=== PATIENT | female | born 2000 | race Caucasian/White ===

== ENCOUNTER 2018-05-09 19:49 | Emergency (ER) | payer MEDICAID ==
--- NOTE | 2018-05-09 20:10 | Emergency Department Record ---
History of Present Illness - General Chief complaint: Abscess Stated complaint: RT ARM PIT ABCESS Time Seen by Provider: 05/09/18 19:50 Source: Patient Mode of Arrival: Ambulatory Limitations: No limitations - History of Present Illness Initial comments: 18 yo female presents to ED for evaluation of swelling and drainage from the right axillary region that began 5 days ago. Patient reports that she accidentally nicked the area with a finger nail while putting on deodorant when the lesion began draining. Patient reports pain and irritation from her bra on the right side. Patient denies fever, chills, or recent illness. MD complaint: Abscess/boil Onset/Timin -: Days(s) Hx Tetanus Toxoid Vaccination: Yes Patient Tetanus UTD (within 5 yrs): Yes Location: RUE Severity: Moderate Severity scale (1-10): 8 Quality: Dull Consistency: Constant Improves with: None Worsens with: None Context: None Associated symptoms: Denies other symptoms Treatments Prior to Arrival: Attempted to drain pus at home, Bandages - Related Data Home Medications Medication Instructions Recorded Confirmed Last Taken Levonorgestrel-Ethin Estradiol 1 tab PO ASDIR 05/09/18 05/09/18 Unknown [Levonor-Eth Estrad 0.15-0.03] Previous Rx's Medication Instructions Recorded Clindamycin HCl 300 mg PO QID #27 capsule 05/09/18 Allergies Allergy/AdvReac Type Severity Reaction Status Date / Time No Known Drug Allergies Allergy Verified 05/09/18 19:57 Travel Screening - Travel/Exposure Within Last 30 Days Have you traveled within the last 30 days?: No - Travel/Exposure Within Last Year Have you traveled outside the [place] in the last year?: No - Additonal Travel Details Have you been exposed to anyone with a communicable illness?: No - Travel Symptoms Symptom Screening: None Review of Systems Constitutional: Denies: Chills, Fever, Malaise, Night sweats Eyes: Denies: Eye discharge, Eye pain, Photophobia ENT: Denies: Congestion, Ear pain, Epistaxis Respiratory: Denies: Cough, Dyspnea Cardiovascular: Denies: Chest pain, Dyspnea on exertion Endocrine: Denies: Fatigue, Heat or cold intolerance Gastrointestinal: Denies: Abdominal pain, Nausea, Vomiting Genitourinary: Denies: Incontinence, Retention Musculoskeletal: Denies: Arthralgia, Back pain, Gout, Joint swelling Skin: Reports: Lesions, Other (Swelling/pain to the right axillary region). Denies: Bruising, Change in color Neurological: Denies: Abnormal gait, Confusion Psychiatric: Denies: Anxiety Hematological/Lymphatic: Denies: Anemia, Blood Clots Past Medical History - SOCIAL HISTORY Smoking Status: Never smoker Alcohol Use: None Drug Use: None - RESPIRATORY Hx Respiratory Disorders: Yes Hx Asthma: Yes - CARDIOVASCULAR Hx Cardio Disorders: No - NEURO Hx Neuro Disorders: No - GI Hx GI Disorders: No - Hx Genitourinary Disorders: No - ENDOCRINE Hx Endocrine Disorders: No - MUSCULOSKELETAL Hx Musculoskeletal Disorders: No - PSYCH Hx Psych Problems: No - HEMATOLOGY/ONCOLOGY Hx Hematology/Oncology Disorders: No Family Medical History Any Significant Family History?: No Physical Exam - General General Appearance: Alert, Oriented x3, Cooperative, Mild distress Limitations: No limitations - Head Head exam: Atraumatic, Normocephalic, Normal inspection Head exam detail: negative: Abrasion, Contusion, Cano's sign, General tenderness, Hematoma, Laceration - Eye Eye exam: Normal appearance. negative: Conjunctival injection, Periorbital swelling, Periorbital tenderness, Scleral icterus - ENT Ear exam: negative: Auricular hematoma, Auricular trauma Nasal Exam: negative: Active bleeding, Discharge, Dried blood, Foreign body Mouth exam: negative: Drooling, Laceration, Muffled voice, Tongue elevation - Neck Neck exam: Normal inspection. negative: Meningismus, Tenderness - Respiratory Respiratory exam: Normal lung sounds bilaterally. negative: Respiratory distress, Rhonchi, Stridor, Wheezes - Cardiovascular Cardiovascular Exam: Regular rate, Normal rhythm, Normal heart sounds - GI/Abdominal GI/Abdominal exam: Soft. negative: Rebound, Rigid, Tenderness - Rectal Rectal exam: Deferred - exam: Deferred - Extremities Extremities exam: Tenderness, Other (2.5 cm area of erythema, induration, and drainage present to the proximal right medial forearm c/w cutaneous abscess). negative: Pedal edema - Back Back exam: Denies: CVA tenderness (R), CVA tenderness (L) - Neurological Neurological exam: Alert, Normal gait, Oriented X3 - Psychiatric Psychiatric exam: Normal affect, Normal mood - Skin Skin exam: Erythema. negative: Abrasion Type of lesion: negative: abrasion Course Vital Signs 05/09/18 05/09/18 19:59 20:00 Temperature 98.5 F 98.5 F Pulse Rate [ 97 H Pulse Ox Probe] Respiratory 20 20 Rate Blood Pressure 149/98 [Left Arm] Pulse Ox 98 98 - Reevaluation(s) Reevaluation #1: 05/09/18 20:15 Procedure Note: Skin was cleaned and prepped in sterile fashion, abscess was anesthetized with 1% Lidocaine with epinephrine with good anesthesia. Abscess was then further opened using #11 blade, moderate amount of sero-sanguinous material was removed. Abscess was further probed to break up loculations. Patient tolerated the procedure well without complications, instructed to apply warm soaks BID. Will also initiate treatment with Clindamycin as directed. Procedures - Incision and Drainage Site: Right proximal upper extremity medially, 2.5 cm abscess Blade Size: 11 Disposition Disposition: Discharge Clinical Impression: Cutaneous abscess Qualifiers: Site of cutaneous abscess: extremity Site of cutaneous abscess of extremity: axilla Laterality: right Qualified Code(s): L02.411 - Cutaneous abscess of right axilla Disposition: Home, Self-Care Condition: (2) Stable Instructions: Abscess Incision and Drainage (ED) Additional Instructions: Return to ED if your symptoms worsen or if you have any concerns. Clindamycin as directed.' Warm soaks twice daily. Follow-up with your family doctor in 3-5 days as directed. Prescriptions: Clindamycin HCl 300 mg PO QID #27 capsule Forms: Patient Portal Access Time of Disposition: 20:10 Quality - Quality Measures Quality Measures: N/A - Blood Pressure Screening Does Patient Have Any of the Following: No Blood Pressure Classification: Pre-Hypertensive BP Reading Systolic Measurement: 130 Diastolic Measurement: 69 Screening for High Blood Pressure: < Pre-Hypertensive BP, F/U Documented > [ [id number]] Pre-Hypertensive Follow-up Interventions: Referral to alternative/primary care provider.
[2018-05-09] MEDS: CLINDAMYCIN 150 MG CAP PO ONE (20:22)
== END 2018-05-09 20:26 | disposition home or self-care (01) ==
LOC: ER 19:49
DX: L03.111 Cellulitis of right axilla (principal)
CPT/HCPCS: 10060; 99284